=== PATIENT | male | born 1970 | race Caucasian/White ===

== ENCOUNTER 2018-08-26 18:44 | Emergency (ER) | payer MEDICAID ==
[~2018-08-26] VITALS: Ht 175.3 cm; Wt 86.6 kg
--- NOTE | 2018-08-26 18:54 | NUR ---
PT TO ER BED . C/O HEART PALPIATION W/ LIGHTHEADEDNESS THAT STARTED AT AROUND 1730 TODAY WHILE DRIVING HOME. STATES SAME SYMPTOMS HAPPENED 3 DAYS AGO. HX OF ANXIETY. PLACED ON MONITOR. VSS. AWAITING MD REED.
--- NOTE | 2018-08-26 19:01 | NUR ---
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
--- NOTE | 2018-08-26 19:10 | NUR ---
REPORT GIVEN TO KAY LUTZ FOR RACHANA.
--- NOTE | 2018-08-26 19:15 | NUR ---
RADIOLOGY AT BEDSIDE FOR CHEST XRAY.
[2018-08-26 19:23] LABS: BASOPHILS # (AUTO) 0.1 /CMM (0.0-0.2); BASOPHILS % (AUTO) 0.7 % (0.0-2.0); EOSINOPHILS % (AUTO) 1.4 % (0.0-6.0); HEMATOCRIT 40 % (39-51); HEMOGLOBIN 13.5 g/dL (13.5-17.5); LYMPHOCYTES # (AUTO) 2.2 /CMM (0.8-4.8); LYMPHOCYTES % (AUTO) 28.6 % (20.0-44.0); MEAN CORPUSCULAR HGB CONC 34 g/dl (31.0-36.0); MEAN CORPUSCULAR VOLUME 86 fL (80-96); MONOCYTES # (AUTO) 0.6 /CMM (0.1-1.30); NEUTROPHILS # (AUTO) 4.7 /CMM (1.8-8.9); NEUTROPHILS % (AUTO) 61.3 % (43.0-81.0); PLATELET COUNT (AUTO) 328 /CMM (150-450); RDW COEFFICIENT OF VARIATION 12.4 (11.5-15.0); RED BLOOD CELL COUNT(AUTO) 4.64 MIL/uL (4.5-6.0); WHITE BLOOD COUNT (AUTO) 7.7 K/uL (4.3-11.0)
[2018-08-26] MEDS ORDERED: LORAZEPAM 1 MG TABLET ONE (19:30)
[2018-08-26] MEDS ORDERED: LORAZEPAM 1 MG TABLET PO ONE (19:30)
[2018-08-26 19:35] LABS: CALCIUM, SERUM 9.2 mg/dL (8.5-10.1); CARBON DIOXIDE 30 mmol/L (21-32); CHLORIDE 101 mmol/L (98-107); CREATININE 1.4 mg/dL (0.6-1.3); SODIUM SERUM 136 mmol/L (136-145); UREA NITROGEN, BLOOD 16 mg/dL (7-18)
[2018-08-26 19:42] LABS: TROPONIN I < 0.017 ng/mL (0.00-0.056)
[2018-08-26 19:44] LABS: ALANINE AMINOTRANSFERASE 22 U/L (12-78); ALBUMIN 4.2 g/dL (3.4-5.0); ALKALINE PHOSPHATASE 93 U/L (46-116); ASPARTATE AMINOTRANSFERASE 19 U/L (15-37); BILIRUBIN,DIRECT 0.1 mg/dL (0.0-0.2); BILIRUBIN,TOTAL 0.8 mg/dL (0.2-1.0); GLUCOSE 96 mg/dL (74-106); TOTAL PROTEIN, SERUM 7.8 g/dL (6.4-8.2)
[2018-08-26 19:50] LABS: INR 0.95 (0.85-1.15)
[2018-08-26] MEDS: POTASSIUM CHLORIDE 20 MEQ TAB.PRT.SR PO ONE ×2 (20:23→20:30)
--- NOTE | 2018-08-26 20:23 | NUR ---
Re-evaluated by MD. Denies any new or worsening sx's at this time. Resp even and unlabored. Patient discharged to home in stable condition. Written and verbal after care instructions given. Patient verbalizes understanding of instruction. IV removed. Catheter intact and site benign. Pressure and 4x4 applied to site. No bleeding noted. Ambulatory with a steady gait
[2018-08-26 20:24] VITALS: BP 139/81
--- NOTE | 2018-08-26 20:25 | NUR ---
PT INITIALLY REFUSED POTASSIUM MEDICATION, DURING DISCHARGE PT STATED HE WOULD TAKE THE MEDICATION. NON ADMIN UNDONE AND PT MEDICATED ORDERED.
[2018-08-26] MEDS ORDERED: POTASSIUM CHLORIDE 20 MEQ TAB.PRT.SR PO ONE (20:26)
== END 2018-08-26 20:45 | disposition home or self-care (01) ==
LOC: ER 18:47
DX: F41.9 Anxiety disorder, unspecified (principal); F14.10 Cocaine abuse, uncomplicated; E87.6 Hypokalemia; N28.9 Disorder of kidney and ureter, unspecified; F12.90 Cannabis use, unspecified, uncomplicated; G89.29 Other chronic pain; Z98.890 Other specified postprocedural states; Z88.0 Allergy status to penicillin; Z88.1 Allergy status to other antibiotic agents; Z60.2 Problems related to living alone
CPT/HCPCS: 36415; 71045-TC; 80048-TC; 80076-TC; 80305; 84484-TC; 85025-TC; 85730-TC; A4606; Z7610